=== PATIENT | female | born 1960 | race Caucasian/White ===

== ENCOUNTER 2016-12-11 08:43 | Emergency (ER) | payer OTHER ==
--- NOTE | 2016-12-11 08:56 | EDPHY ---
H & P Time Seen by Provider: 12/11/16 08:54 HPI/ROS: CHIEF COMPLAINT:Dysuria and migraine HISTORY OF PRESENT ILLNESS: The patient is a 56-year-old female presenting with dysuria that she woke up with at 1am, about 8 hours ago. She took Pyridium at that time, but continues to have dysuria as well as urinary frequency. The patient has been here three times in the past year for urinary tract infections. She states she usually develops these symptoms following intercourse. She reports no new partners. The patient is menopausal and is taking hormonal replacement. She denies fever. No back or flank pain. The patient has a history of migraine headaches that occur about once or twice per week. This morning she developed right retroorbital pain today that is typical of her migraine headaches. She did a dihydroergotamine injection which usually takes about 1.5 hours to alleviate the pain. She is followed by a specialist for her migraines. She is not seeking treatment for migraine today. REVIEW OF SYSTEMS: A ten point review of systems was performed and is negative with the exception of the items mentioned in the HPI. 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 . - Physical Exam Exam: General Appearance: Alert. Vital signs reviewed. Eyes: Pupils equal and round, no conjunctival injection, no discharge. Anicteric. Neck: No lymphadenopathy, supple. Respiratory: Lungs are clear to auscultation; no wheezes, rales, or rhonchi. Cardiovascular: Regular rate and rhythm; no murmur, rub, or gallop. Gastrointestinal: Abdomen is soft and nontender, no masses or organomegaly, bowel sounds normal. Skin: Warm and dry, no rashes on exposed skin, normal color. Back: Nontender to palpation over the thoracolumbar spine. No CVAT. Extremities: No lower extremity edema, no calf tenderness or swelling. Neurological: Alert and oriented. Moving all four extremities easily and equally. Psychiatric: Normal affect. Constitutional: Initial Vital Signs Temperature (C) 36.4 C 12/11/16 08:56 Heart Rate 73 12/11/16 08:56 Respiratory Rate 16 12/11/16 08:56 Blood Pressure 113/62 12/11/16 08:56 O2 Sat (%) 96 12/11/16 08:56 O2 Delivery Mode Room Air Allergies/Adverse Reactions: sulfamethoxazole [From Septra] Allergy (Verified 12/11/16 08:54) trimethoprim [From Septra] Allergy (Verified 12/11/16 08:54) Home Medications: Medication Instructions Recorded Advair Unk Dose 01/02/15 Imitrex Unk Dose 01/02/15 Phenazopyridine HCl [Pyridium] 200 mg PO TID PRN #9 tab 07/16/16 Wellbutrin Sr 07/16/16 Cephalexin [Keflex] 500 mg PO BID #10 cap 12/11/16 Phenazopyridine HCl [Pyridium] 200 mg PO TID PRN #4 tab 12/11/16 Medical Decision Making ED Course/Re-evaluation: The patient is a 56-year-old female with history of urinary tract infections who presents with dysuria and frequency. Patient is afebrile. On examination she has no abdominal tenderness or flank tenderness. Urinalysis is positive for leukocyte esterase, nitrates, blood, and bacteria. Plan to discharge the patient home with Keflex and Pyridium. She was instructed to followup with her primary care physician. Danger signs reviewed. Differential Diagnosis: I considered a differential diagnosis that includes but is not limited to urinary tract infection, pyelonephritis, ureterolithiasis, and urinary retention. - Data Points Laboratory Results: 12/11/16 09:00 Urine Color YELLOW Urine Appearance CLEAR Urine pH 7.5 (5.0-7.5) Ur Specific [place] <= 1.005 (1.002-1.030) Urine Protein NEGATIVE (NEGATIVE) Urine Ketones NEGATIVE (NEGATIVE) Urine Blood 3+ H (NEGATIVE) Urine Nitrate POSITIVE H (NEGATIVE) Urine Bilirubin NEGATIVE (NEGATIVE) Urine Urobilinogen 0.2 EU EU (0.2-1.0) Ur Leukocyte Esterase 2+ H (NEGATIVE) Urine RBC 3-5 /hpf H /hpf (0-3) Urine WBC 25-50 /hpf H /hpf (0-3) Ur Epithelial Cells TRACE /lpf /lpf (NONE-1+) Urine Bacteria 1+ /hpf H /hpf (NONE SEEN) Urine Glucose NEGATIVE (NEGATIVE) Departure - Departure Disposition: Home, Routine, Self-Care Clinical Impression: Urinary tract infection Qualifiers: Urinary tract infection type: site unspecified Hematuria presence: without hematuria Qualified Code(s): N39.0 - Urinary tract infection, site not specified Condition: Good Instructions: Urinary Tract Infection in Women (ED) Additional Instructions: Please take full course of antibiotics as prescribed. Take Pyridium as directed to alleviate pain, burning, and frequency. Followup with your primary care physician for further evaluation. Referrals: Susan Muniz MD [Primary Care Provider] - As per Instructions Prescriptions: Cephalexin [Keflex] 500 mg PO BID #10 cap Phenazopyridine HCl [Pyridium] 200 mg PO TID PRN #4 tab PRN Reason: urinary tract infection/pian Report Scribed for: Roya Chau Report Scribed by: Doreen Douglas Date of Report: 12/11/16 Time of Report: 09:19 Physician Review and Approval Statement: 12/11/16 08:55 Portions of this note were transcribed by the faculty i on call medical assistant. I, Dr. Roya Chau, personally performed the history, physical exam, and medical decision- making; and confirmed the accuracy of the information in the transcribed note.
[2016-12-11 08:58] VITALS: BP 113/62; PULSE 73; RESP 16; TEMP 97.5; O2SAT 96
[2016-12-11 09:05] LABS: COLOR YELLOW; LEUKOCYTE ESTERASE,URINE 2+ (NEGATIVE); NITRITE,URINE POSITIVE (NEGATIVE); PH,URINE 7.5 (5.0-7.5)
[2016-12-11 09:15] LABS: BACTERIA 1+ /hpf (NONE SEEN); WBC,URINE 25-50 /hpf (0-3)
== END 2016-12-11 09:28 | disposition home or self-care (01) ==
LOC: CED 08:43
DX: N39.0 Urinary tract infection, site not specified (principal)
CPT/HCPCS: 81003-PO; 81015-PO